=== PATIENT | male | born 2000 | race Caucasian/White ===

== ENCOUNTER 2025-02-16 22:33 | Observation (INO) | payer BC, SELFPAY ==
[2025-02-16 22:35] VITALS: BP 161/97; PULSE 127; RESP 15; TEMP 38.4; O2SAT 96; BMI 29.1
[2025-02-16 22:36] VITALS: BP 161/97; PULSE 127; RESP 15; TEMP 38.4; O2SAT 96
--- NOTE | 2025-02-16 23:04 | EKG12_ITS ---
Test Reason : PRE OP Blood Pressure : */* mmHG Vent. Rate : 93 BPM Atrial Rate : 93 BPM P-R Int : 140 ms QRS Dur : 82 ms QT Int : 338 ms P-R-T Axes : 22 38 -4 degrees QTcB Int : 420 ms Normal sinus rhythm Normal ECG Confirmed by Delta Nicole ([id number]), film editor supervisor TIA COLEMAN ([id number]) on 02/20/2025 11:54:34 AM Referred By: PENNY Confirmed By: Delta Nicole
--- NOTE | 2025-02-16 23:07 | PCA ---
NO OLD EKG
--- NOTE | 2025-02-16 23:08 | ED.VIS.GI ---
HPI HPI - GI History of Present Illness Chief Complaint: Abd Pain Informant: patient and parent Narrative Narrative: Here with mother vague generalized abdominal pain started at 1 PM today. Ate lunch at noon. 4 PM noted fever pain went to right lower quadrant. Nausea without vomiting. Has small nonbloody bowel movement 6 PM. No abdominal surgeries. No past medical history. No allergies. No urinary symptoms. No cough. Prior similar symptoms: No PFSH PFSH Medical History no medical history Home Medications ?Medication ?Instructions ?Recorded ?Last Taken ?Type NK 02/16/25 Unknown History Allergy/AdvReac Type Severity Reaction Status Date / Time No Known Allergies Allergy Verified 02/16/25 22:35 Surgical History no surgical history Social History Smoking Status: Never smoker ROS ROS ED Constitutional Constitutional ED: Reports fever(s); Denies chills or sweats ENT ENT ED: Denies sore throat Cardiovascular Cardiovascular: Denies chest pain, leg edema, palpitations or racing heartbeat Respiratory/Chest Respiratory/Chest: Denies cough, dyspnea or dyspnea on exertion Gastrointestinal Gastrointestinal: Reports abdominal pain and nausea; Denies diarrhea or vomiting Genitourinary Genitourinary ED: Denies dysuria, hematuria or urinary frequency Musculoskeletal Musculoskeletal: Denies back pain, extremity pain or neck pain Integumentary Denies rash or wounds Neurologic Neurologic: Denies headache(s), paresthesias or weakness EXAM Physical Exam Const Vital Signs: 02/16/25 22:35 02/16/25 22:36 02/16/25 23:36 Temperature 101.1 F H 101.1 F H 98 F Temperature Source Oral Oral Oral Pulse Rate 127 H 127 H 82 Respiratory Rate 15 15 16 Blood Pressure 161/97 H 161/97 H 122/74 H Blood Pressure Mean 118 118 90 Pulse Ox 96 96 97 Oxygen Delivery Method Room Air Room Air Room Air 02/17/25 00:24 Temperature 98 F Temperature Source Pulse Rate 83 Respiratory Rate 16 Blood Pressure 122/74 H Blood Pressure Mean 90 Pulse Ox 97 Oxygen Delivery Method Positive well nourished and well developed General Appearance ED: well developed and NAD HEENT Reports moist mucous membranes normocephalic and atraumatic Eyes General Eye ED: Yes normal appearance of both eyes Neck full ROM Chest Wall Chest: Negative for tenderness Resp normal respiratory effort and normal air movement Effort and Inspection: symmetric chest movement; Negative for respiratory distress Cardio regular rhythm and no murmurs Rate: tachycardic Peripheral Pulses: pulses 2+ throughout GI normal to inspection, nondistended, normoactive bowel sounds GI Narrative: Positive Nova's, positive Rovsing's Palpation: Negative for guarding or rebound tenderness present Extremity normal to inspection General Extremety ED: Negative for edema or tenderness General Extremity: Negative for edema Neuro oriented x3 and no sensory deficits noted Sensorium / Orientation: awake and alert Skin no rashes or lesions noted and no wounds MDM MDM MDM Narrative Medical decision making narrative: Interventions / MDM: Differential diagnosis: Acute appendicitis, fever, abdominal pain Diagnosis considered but do not suspect: N/A My EKG interpretation: Sinus rhythm 93, no ST changes, slight T wave version lead III nonspecific. QTc 420. Imaging independently reviewed and interpreted by myself: 1 view chest x-ray: No acute process. CT abdomen pelvis IV contrast: Dilated appendix consistent with appendicitis. External documents reviewed: N/A Test considered but not ordered:N/A ED course: Patient nontoxic and febrile tachycardic. Clinical presentation history concerns for appendicitis. Labs ordered preop EKG chest x-ray fluids Zofran. I did discuss with on-call surgeon Dr. Peguero with clinical concerns, he would like this CT abdomen pelvis IV contrast. Is okay with IV Toradol for his fever. This was ordered. He will be kept NPO. 2349: CT abdomen pelvis interpreted myself concerns for dilated appendix 11 mm. Awaiting final read. Chest x-ray negative. 0001: CT confirmed appendiceal thickening with surrounding inflammation. Clinically nausea and pain controlled at this time. 0010: We discussed with Dr. Peguero, will admit under his service will start antibiotics. Re-evaluation: stable Disposition discussed with patient/family/significant other: Patient and mother Case discussed with consulting clinician: General Surgery This note was generated with [employer] dictation software. It may contain incorrect words, spelling, and punctuation that were not noted in checking the note before signing. Lab Data Attestation: I reviewed the patient's lab results. Labs: Laboratory Results - last 24 hr 02/16/25 02/16/25 22:44 23:15 WBC 14.4 H RBC 5.50 Hgb 17.4 H Hct 47.0 MCV 85.5 MCH 31.6 MCHC 37.0 H RDW Std Deviation 36.3 RDW Coeff of Erik 11.6 Plt Count 226 MPV 10.1 Immature Gran % (Auto) 0.500 Neut % (Auto) 87.1 H Lymph % (Auto) 6.[address] [place] % (Auto) 5.3 Eos % (Auto) 0.0 Baso % (Auto) 0.2 Absolute Neuts (auto) 12.5 H Absolute Lymphs (auto) 0.99 Nucleated RBC % 0 PT 13.9 INR 1.1 APTT 23.5 L Sodium 136 Potassium 3.8 Chloride 100 Carbon Dioxide 22.8 Anion Gap 13 BUN 16 Creatinine 0.93 Estim Creat Clear Calc 143.96 Est GFR (MDRD) Non-Af 118 BUN/Creatinine Ratio 17.0 Glucose 129 H Calcium 9.7 Blood Type A POSITIVE Antibody Screen NEGATIVE Radiography Diagnostic Testing: Clinical Impression(s) from Imaging Studies Abdomen/Pelvis CT 02/16/25 23:12 IMPRESSION: Appendiceal wall thickening, hyperemia and surrounding mesenteric soft tissue stranding concerning for acute mild appendicitis. Reading Location: [facility] Chest X-Ray 02/16/25 23:27 IMPRESSION: No Acute Findings. Reading Location: [facility] Discharge Plan Dx/Rx/DC Orders Clinical Impression: Acute appendicitis, Fever, Abdominal pain, acute, right lower quadrant Disposition Disposition: [facility] Discharge Date/Time: 02/17/25 00:56
--- NOTE | 2025-02-16 23:12 | CT_ITS ---
PROCEDURE: ABDOMEN/PELVIS W IV CONT ONLY 02/16/2025 REASON FOR EXAM: RLQ PAIN TECHNIQUE: Abdomen and pelvis CT with intravenous contrast. Coronal and Sagittal reconstruction series were provided. PATIENT PREPARATION: Per protocol ORAL CONTRAST TYPE: None. AMOUNT: mL CONTRAST: Omnipaque 350 VOLUME: 100 mL Not Provided Gauge IV One or more dose reduction techniques were used (e.g., Automated exposure control, adjustment of the mA and/or kV according to patient size, use of iterative reconstruction technique. COMPARISON: None FINDINGS: Lung bases: Unremarkable. Liver: Normal size. No mass. Gallbladder: No ductal dilation. No cholelithiasis or wall thickening. Spleen: Normal size. Pancreas: Normal size without evidence of mass surrounding inflammation or ductal dilation. Adrenals: Unremarkable. Kidneys: Normal renal sizes. No hydronephrosis. Bladder: Unremarkable. Reproductive Organs: No pelvic mass. Bowel: Stomach is unremarkable. No bowel dilation or wall thickening. Moderate colonic stool. Appendix: Mild appendiceal dilation, with wall thickening and hyperemia. There is mild surrounding soft tissue stranding. Findings concerning for mild acute appendicitis. Lymph nodes: No suspicious lymph node enlargement. Vasculature: The abdominal aorta and IVC are normal. Peritoneum / Retroperitoneum: No ascites. Bones: No acute osseous abnormality. Soft tissues: Soft tissues are within normal limits. CT/Abdomen/Pelvis W IV Cont ONLY IMPRESSION: Appendiceal wall thickening, hyperemia and surrounding mesenteric soft tissue s tranding concerning for acute mild appendicitis. Reading Location: [facility]
[2025-02-16] MEDS: Ondansetron 4 MG/2 ML Vial IV (23:18)
[2025-02-16] MEDS: Ketorolac 15 MG/ML Vial IV (23:18)
[2025-02-16] MEDS: 0.9% Normal Saline (1000mL) 1,000 ML 125 ML IV (23:18)
--- NOTE | 2025-02-16 23:27 | RAD_ITS ---
PROCEDURE: CHEST 1 VIEW (PORTABLE) 02/16/2025 REASON FOR EXAM: PREOP TECHNIQUE: Frontal view of the chest. COMPARISON: None FINDINGS: Hardware: None Heart: Cardiac and mediastinal contours are stable. Lungs: No significant change in the appearance of the lungs. Bones: No focal consolidation. No pneumothorax. Other: RAD/Chest 1 View (Portable) IMPRESSION: No Acute Findings. Reading Location: [facility]
[2025-02-16 23:28] LABS: Anion Gap 13 (5-15); BUN 16 mg/dL (4-19); Calcium,Total 9.7 mg/dL (7.6-11.0); Carbon Dioxide 22.8 mmol/L (21.0-32.0); Chloride 100 mmol/L (98-108); Creatinine, Serum 0.93 mg/dL (0.70-1.20); EST Glomerular Filtration Rate 118 (>60); Estimated Creatinine Clearance 143.96 ml/min (50-250); Glucose 129 mg/dL (70-99); Potassium 3.8 mmol/L (3.3-5.1); Sodium Level 136 mmol/L (133-145)
[2025-02-16 23:36] VITALS: BP 122/74; PULSE 82; RESP 16; TEMP 36.6; O2SAT 97
[2025-02-16 23:36] LABS: International Normalized Ratio 1.1; Prothrombin Time (Protime)PT. 13.9 SECONDS (11.7-14.9)
[2025-02-16 23:37] LABS: Partial Thromboplast Time 23.5 Seconds (24.1-36.2)
[2025-02-17] VITALS (14 sets, daily range): BP systolic 116–149; BP diastolic 51–92; PULSE 68–107; RESP 16–18; TEMP 36.4–37.3; O2SAT 92–100; BMI 29.0
[2025-02-17] MEDS: Piperacil/Tazobactam 4.5 GM in 0.9% Normal Saline (100mL MB+) 100 ML IV (00:39)
[2025-02-17 00:49] LABS: Absolute Lymphocyte Count 0.99 X10^3/uL (0.83-4.51); Absolute Neutrophil Count 12.5 X10^3/uL (2.0-7.7); Basophil# 0.03 X10^3/uL; Basophil% 0.2 % (0-1); Hemoglobin 17.4 g/dL (13.0-16.5); Lymphocyte # 0.99 X10^3/ul (0.83-4.51); Lymphocyte % 6.9 % (19-41); Mean Corpuscular Hgb 31.6 pg (27.0-32.0); Mean Corpuscular Volume 85.5 fL (80-94); Mean Platelet Vol. 10.1 fl (6.2-12.0); Monocyte# 0.76 X10^3/uL; Monocyte% 5.3 % (0-10); NRBC Flagged by Analyzer 0 % (0-5); Neutrophil # 12.51 X10^3/uL (2.7-7.7); Neutrophil % 87.1 % (47-70); Platelet Count 226 K/mm3 (150-450); RBC Distribution Width CV 11.6 % (11.6-14.6); RBC Distribution Width SD 36.3 fl (35.1-43.9); White Blood Count 14.4 K/mm3 (4.4-11.0)
[2025-02-17] MEDS: Piperacil/Tazobactam 3.375 GM in 0.9% Normal Saline (50mL MB+) 50 ML IV (05:28)
[2025-02-17] MEDS: 0.9% Normal Saline (250mL Bag) 250 ML 15 ML IV (05:29)
[2025-02-17 06:19] LABS: Absolute Lymphocyte Count 1.78 X10^3/uL (0.83-4.51); Absolute Neutrophil Count 7.9 X10^3/uL (2.0-7.7); Basophil# 0.01 X10^3/uL; Basophil% 0.1 % (0-1); Eosinophil# 0.01 X10^3/uL; Eosinophils% 0.1 % (0-5); Hematocrit 41.3 % (40-54); Hemoglobin 15.3 g/dL (13.0-16.5); Lymphocyte # 1.78 X10^3/ul (0.83-4.51); Lymphocyte % 16.6 % (19-41); Mean Corpuscular Hgb 31.6 pg (27.0-32.0); Mean Corpuscular Volume 85.3 fL (80-94); Mean Platelet Vol. 9.9 fl (6.2-12.0); Monocyte# 1.04 X10^3/uL; Monocyte% 9.7 % (0-10); NRBC Flagged by Analyzer 0 % (0-5); Neutrophil # 7.86 X10^3/uL (2.7-7.7); Neutrophil % 73.1 % (47-70); Platelet Count 211 K/mm3 (150-450); RBC Distribution Width CV 11.6 % (11.6-14.6); RBC Distribution Width SD 35.1 fl (35.1-43.9); Red Blood Count 4.84 M/mm3 (4.6-6.2); White Blood Count 10.7 K/mm3 (4.4-11.0)
[2025-02-17 06:44] LABS: Anion Gap 12 (5-15); BUN 14 mg/dL (4-19); BUN/Creat Ratio 15.7 RATIO (10-20); Carbon Dioxide 25.2 mmol/L (21.0-32.0); Chloride 103 mmol/L (98-108); Creatinine, Serum 0.89 mg/dL (0.70-1.20); EST Glomerular Filtration Rate 123 (>60); Estimated Creatinine Clearance 150.27 ml/min (50-250); Glucose 105 mg/dL (70-99); Potassium 3.8 mmol/L (3.3-5.1); Sodium Level 140 mmol/L (133-145)
--- NOTE | 2025-02-17 06:59 | HP.PCM_ITS ---
HPI - General General Date of Admission: 02/17/25 Chief Complaint: Acute onset abdominal pain HPI Narrative CARA RUBIN, is a 24 M who presents to [facility] with complaints of acute onset abdominal pain beginning approximately 1300 yesterday. He shares that the pain began centrally and then migrated to become localized in his right lower quadrant. He reports some associated nausea. Bowel movements are reported as normal but there is a feeling of constipation. Mr. Rubin denies any similar symptoms prior to this event. Patient's ER workup notable for CBC that demonstrated a normal white blood cell count but slight left shift. CT imaging of the abdomen pelvis obtained with IV contrast showed evidence of mild appendicitis through dilation and wall thickening. Mr. Rubin has no history of other medical issues or prior surgery. [facility] Medical History no medical history Home Medications ?Medication ?Instructions ?Recorded ?Last Taken ?Type NK 02/16/25 Unknown History Allergy/AdvReac Type Severity Reaction Status Date / Time No Known Allergies Allergy Verified 02/16/25 22:35 Surgical History no surgical history Social History Smoking Status: Never smoker Vital Signs Vital Signs Vital Signs: 02/16/25 22:35 02/16/25 22:36 02/16/25 23:36 Temperature 101.1 F H 101.1 F H 98 F Temperature Source Oral Oral Oral Pulse Rate 127 H 127 H 82 Respiratory Rate 15 15 16 Respiratory Effort Respiratory Depth Respiratory Pattern Blood Pressure 161/97 H 161/97 H 122/74 H Blood Pressure Mean 118 118 90 Blood Pressure Source Blood Pressure Position Blood Pressure Location Pulse Ox 96 96 97 Oxygen Delivery Method Room Air Room Air Room Air 02/17/25 00:24 02/17/25 00:42 02/17/25 01:00 Temperature 98 F 98.8 F Temperature Source Oral Pulse Rate 83 85 Respiratory Rate 16 16 Respiratory Effort Normal Non-Labored Respiratory Depth Normal Respiratory Pattern Normal Blood Pressure 122/74 H 126/81 H Blood Pressure Mean 90 96 Blood Pressure Source Monitor Blood Pressure Position Semi-Fowlers Blood Pressure Location Right Arm Pulse Ox 97 97 Oxygen Delivery Method Room Air Room Air 02/17/25 06:01 Temperature 98 F Temperature Source Oral Pulse Rate 85 Respiratory Rate 16 Respiratory Effort Respiratory Depth Respiratory Pattern Blood Pressure 124/51 H Blood Pressure Mean 75 Blood Pressure Source Monitor Blood Pressure Position Semi-Fowlers Blood Pressure Location Right Arm Pulse Ox 98 Oxygen Delivery Method Room Air Weight Weight: 208 lb 8 oz Body Mass Index (BMI) 29.0 Physical Exam Const alert, oriented x3 and no apparent distress Resp normal respiratory effort GI GI Narrative: Hirsute, no scars, no visible herniation. Soft, nondistended, focally tender to palpation over McBurney's point Results Lab / Micro Data 02/17/25 05:52 02/17/25 05:52 Labs: Laboratory Results - last 24 hr 02/16/25 22:44: WBC 14.4 H, RBC 5.50, Hgb 17.4 H, Hct 47.0, MCV 85.5, MCH 31.6, MCHC 37.0 H, RDW Std Deviation 36.3, RDW Coeff of Erik 11.6, Plt Count 226, MPV 10.1, Immature Gran % (Auto) 0.500, Neut % (Auto) 87.1 H, Lymph % (Auto) 6.9 L, [place] % (Auto) 5.3, Eos % (Auto) 0.0, Baso % (Auto) 0.2, Absolute Neuts (auto) 12.5 H, Absolute Lymphs (auto) 0.99, Nucleated RBC % 0, Sodium 136, Potassium 3.8, Chloride 100, Carbon Dioxide 22.8, Anion Gap 13, BUN 16, Creatinine 0.93, Estim Creat Clear Calc 143.96, Est GFR (MDRD) Non-Af 118, BUN/Creatinine Ratio 17.0, Glucose 129 H, Calcium 9.7 02/16/25 23:15: PT 13.9, INR 1.1, APTT 23.5 L, Blood Type A POSITIVE, Antibody Screen NEGATIVE 02/17/25 05:52: WBC 10.7, RBC 4.84, Hgb 15.3, Hct 41.3, MCV 85.3, MCH 31.6, MCHC 37.0 H, RDW Std Deviation 35.1, RDW Coeff of Erik 11.6, Plt Count 211, MPV 9.9, Immature Gran % (Auto) 0.400, Neut % (Auto) 73.1 H, Lymph % (Auto) 16.6 L, Lasalle % (Auto) 9.7, Eos % (Auto) 0.1, Baso % (Auto) 0.1, Absolute Neuts (auto) 7.9 H, Absolute Lymphs (auto) 1.78, Nucleated RBC % 0, Sodium 140, Potassium 3.8, Chloride 103, Carbon Dioxide 25.2, Anion Gap 12, BUN 14, Creatinine 0.89, Estim Creat Clear Calc 150.27, Est GFR (MDRD) Non-Af 123, BUN/Creatinine Ratio 15.7, G lucose 105 H, Calcium 9.0 Imaging Radiology Impression Abdomen/Pelvis CT 02/16/25 23:12 IMPRESSION: Appendiceal wall thickening, hyperemia and surrounding mesenteric soft tissue stranding concerning for acute mild appendicitis. [facility] Chest X-Ray 02/16/25 23:27 IMPRESSION: No Acute Findings. [facility] Assessment & Plan Assessment/Plan (1) Acute appendicitis: PLAN: Patient is a 24-year-old male who is admitted for management of acute appendicitis with signs and symptoms beginning approximately 18 hours ago. Patient's history is fully consistent and CT appears confirmatory. Exam, likewise, is consistent. Patient is otherwise healthy and I have recommended surgical appendectomy via laparoscopic approach. Procedure was described in detail as well as postprocedural expectations. Patient is receptive and appropriately NPO. Will plan to proceed to the OR at first mutual availability. Consents to be obtained. Patient currently receiving Zosyn 3.375 every 8h. Delta Peguero MD General Surgery Endocrine Surgery Pager: [facility] [address] [place] [address] [address] [place] [address] Office: [phone]
[2025-02-17] MEDS: 0.9% Normal Saline (1000mL) 1,000 ML 125 ML IV ×2 (07:39→17:29)
--- NOTE | 2025-02-17 08:00 | APP_PTH ---
PATIENT: CARA RUBIN LOC: MS3 U#:[id number] AGE/SX: 24/M ROOM: [facility] RE02/17/[address]: Dr. Delta Peguero MD : [id number] BED: 1 DIS: 02/17/2025 SPEC #: [id number] RECD: 02/18/25 09:36 STATUS: MARY REAlexys #: [id number] AILYN: 02/17/25 08:[address]: Delta Peguero DEPT: SURGICAL PATHOLOGY RECD BY: Brandon Burris ENTERED: 02/18/25 10:44 SP TYPE: APPENDIX OTHR DR: Dr. Marcos Gonzalez MD Tissues: A - Appendix, NOS Procedures: Surgery Specimen Level III HEADER OPERATION: Laparoscopic appendectomy PRE-OP DIAGNOSIS: Acute appendicitis TISSUE SUBMITTED: A- Appendix MICROSCOPIC DIAGNOSIS A. Appendix, appendectomy: * Acute appendicitis with transmural inflammation and periappendicitis MICROSCOPIC DESCRIPTION Slides are reviewed. GROSS DESCRIPTION A. Received in formalin in a container labeled with the patient's name, date of , and appendix is a 6 cm in length by 0.8 cm in diameter intact appendectomy specimen with attached mesoappendix measuring up to 2.1 cm in greatest thickness. The serosa is more-chou, smooth, with adherent white-chou exudate. The stapled resection margin is inked black and serial sections reveal a lumen ranging from 0.1 to 0.5 cm filled with friable red-brown material. No perforation or fecalith is discovered. The wall thickness averages 0.3 cm. Certified Nuclear Medicine Technologist sections are submitted in A1 (including resection margin, en face with tip bisected and cross-section). [facility] 02-18-2025 CPT:[id number]
--- NOTE | 2025-02-17 12:58 | PCM.PRE.AN2 ---
ASA Classification* ASA Classification ASA Classification: 1 Assessment & Plan Anesthesia* Anesthesia Assessment Anesthesia Assessment: Discussed sedation and/or anesthesia options, risks, benefits, and alternatives with patient/parents/legal guardian/POA. Questions invited. The patient/parents/legal guardian/POA seems to understand and agrees to proceed with anesthesia plan. Reviewed the physical assessment, medical history, allergy history and patient home medications list prior to surgery/procedure/anesthetic and documented any changes. Performed airway and anesthesia risk assessments. Anesthesia Type Anesthesia Type: General History Source History Obtained from:: Patient and Chart Anesthesia Focused Assessment* Temperature: 98.6 F Pulse Rate: 79 Blood Pressure: 116/60 Respiratory Rate: 16 Pulse Ox: 97 Oxygen Delivery Method: Room Air Airway Assessment Mouth opens: >3 cm Mallampati Score: III Teeth Condition: Intact Neck Range of motion (ROM): Full ROM Focused Labs Anesthesia Preop lab: CBC WBC 10.7 K/mm3 (4.4-11.0) 02/17/25 05:52 02/17/25 RBC 4.84 M/mm3 (4.6-6.2) 02/17/25 05:52 02/17/25 Hgb 15.3 g/dL (13.0-16.5) 02/17/25 05:52 02/17/25 Hct 41.3 % (40-54) 02/17/25 05:52 02/17/25 Plt Count 211 K/mm3 (150-450) 02/17/25 05:52 02/17/25 CHEMISTRY Potassium 3.8 mmol/L (3.3-5.1) 02/17/25 05:52 02/17/25 Sodium 140 mmol/L (133-145) 02/17/25 05:52 02/17/25 BUN 14 mg/dL (4-19) 02/17/25 05:52 02/17/25 Creatinine 0.89 mg/dL (0.70-1.20) 02/17/25 05:52 02/17/25 Glucose 105 mg/dL (70-99) H 02/17/25 05:52 02/17/25 COAG PT 13.9 SECONDS (11.7-14.9) 02/16/25 23:15 02/16/25 Pre-Assessment Diagnosis/Proposed Procedure Planned Operative Procedure(s): Laparoscopic appendectomy. 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 When Was Last Pacemaker Check QUESTION #4 FULL TEXT: You/Your Family Experience fever (hyperthermia) with Anesthesia Last Oral Intake Last Oral intake: Last Oral Intake NPO since 00:00 02/17/25 10:48 Meds taken in AM with sips of No 02/17/25 10:48 water? 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 Female HX of Motion Sickness HX of N/V After Surgery Non-Smoker Duration of Surgery greater than 60 minutes Number of Risk Factors PONV Score Height & Weight Height & Weight: Anesthesia: Height & Weight Height 5 ft 11 in 02/17/25 10:48 Weight: 94.574 kg 02/17/25 10:48 Body Mass Index (BMI) 29.0 02/17/25 10:48 Respiratory Assessment Respiratory Assessment - oil refinery process technician: Respiratory Tract Infection Hx - oil refinery process technician Hx Respiratory Tract Infection No 02/17/25 01:15 STOP Sleep Apnea STOP Sleep Apnea - oil refinery process technician: STOP Sleep Apnea - oil refinery process technician Hx Hypertension No 02/17/25 00:42 Hx Sleep Apnea No 02/17/25 00:42 CPAP BIPAP Do you snore loudly (louder Yes 02/17/25 00:42 than talking or can be heard Do you often feel tired/ No 02/17/25 00:42 fatigued/ sleepy during daytime? Has anyone observed you stop No 02/17/25 00:42 breathing during sleep? STOP Results Negative 02/17/25 00:42 QUESTION #5 FULL TEXT : Do you snore loudly (louder than talking or can be heard through closed doors)? 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 Specify any problems Hx of Preganancy in last 3 N/A 02/17/25 00:42 Months Nurse Filling Out Transfusion [id number] 02/17/25 00:42 & Questions: Date: 02/17/25 02/17/25 00:42 Time: 01:10 02/17/25 00:42 Patient unable to answer at this time (ie. confused, unrespo /Reproduction History /Reproductive History - oil refinery process technician: /Reproductive Hx- oil refinery process technician Hx Now n/a 02/17/25 01:15 Gestational Age (in weeks): EDC: Hx Hx Para Hx Section SAB Active Medications Active Medications: Current Medications Generic Name Dose Route Start Last Admin Trade Name Freq PRN Reason Stop Dose Admin Acetaminophen 650 mg 02/17/25 00:33 Acetaminophen 325 Mg Tablet PO Q6H PRN PRN Pain 1-10 or Fever Hydromorphone HCl 0.5 mg 02/17/25 00:33 Hydromorphone 0.5 Mg/0.5 Ml Syringe IV Q3H PRN PRN Pain Score 6-10 Sodium Chloride 1,000 mls @ 125 mls/hr 02/17/25 00:35 02/17/25 07:39 IV 125 mls/hr .Q8H ALESSANDRA Administration Piperacillin Sod/Tazobactam 50 mls @ 12.5 mls/hr 02/17/25 06:00 02/17/25 09:28 Sod 3.375 gm/ Sodium Chloride IV Infused Q8 ALESSANDRA Infusion Sodium Chloride 250 mls @ 15 mls/hr 02/17/25 01:00 02/17/25 05:30 IV 0 mls/hr .[id number] PRN Infusion Saline Flush Sodium Chloride 250 mls @ 15 mls/hr 02/17/25 01:23 IV .[id number] PRN Saline Flush Sodium Chloride 250 mls @ 15 mls/hr 02/17/25 01:23 IV .[id number] PRN Additional IVPB Infusion Ondansetron HCl 4 mg 02/17/25 00:33 Ondansetron 4 Mg/2 Ml Vial IV Q6H PRN PRN NAUSEA Sodium Chloride 10 - 40 ml 02/17/25 01:00 0.9% Saline Lock 10 Ml Syringe IV UD PRN SALINE FLUSH Sodium Chloride 10 - 40 ml 02/17/25 01:23 0.9% Saline Lock 10 Ml Syringe IV UD PRN SALINE FLUSH PFSH Medical History no medical history Home Medications ?Medication ?Instructions ?Recorded ?Last Taken ?Type NK 02/16/25 Unknown History Allergy/AdvReac Type Severity Reaction Status Date / Time No Known Allergies Allergy Verified 02/16/25 22:35 Surgical History (Updated 02/17/25 @ 13:[address] Ronaldo Deleon MD) Whitestone teeth removed Surgical History no surgical history Social History Smoking Status: Never smoker Review of Systems (Anesthesia) ROS Narrative System reviewed and no additional complaints, except as documented.
[2025-02-17] MEDS: Bupiv/Epi 0.25% 30 ML Vial (13:01)
--- NOTE | 2025-02-17 14:34 | PCM.OPRPT ---
Procedures Digestive 40xxx-49xxx: 16770 Laparoscopy appendectomy Operative Report (Standard) Operative Information Date of Procedure: 02/17/25 Pre-Operative Diagnosis: Acute appendicitis Post-Operative Diagnosis: Acute uncomplicated appendicitis Surgery/Procedure Performed: Laparoscopic appendectomy clinical transplant coordinator: No Type of Anesthesia: General/Supplemental RN Documented Start/Stop Times: Operation Date: 02/17/25 08:00 Case Time Into Pre-Op 02/17/25 11:57 Out of Pre-Op 02/17/25 13:10 Anesthesia Start 02/17/25 13:16 Into Room 02/17/25 13:16 Procedure Start 02/17/25 13:42 Procedure End 02/17/25 14:34 Anesthesia End 02/17/25 14:44 Out of Room 02/17/25 14:44 Into Recovery 02/17/25 14:47 Out of Recovery 02/17/25 15:32 Procedure Start Time: 13:42 Procedure Stop Time: 14:34 Select all DRAINS/GRAFTS/IMPLANTS that apply: None Estimated Blood Loss: 5 Specimen collected: Yes Description of specimen(s) removed: appendix Description of surgery: After appropriate identification in the preoperative holding area, the patient was brought to the operating room and placed supine on the operating room table. Antibiotics had been preoperatively administered but were redosed at the time of incision. Patient was then induced with general endotracheal anesthetic. The abdomen was prepped and draped in usual sterile fashion. Formal timeout was conducted to confirm both the patient and the procedure. A supraumbilical incision was made and carried down to the level of the fascia which was sharply opened. After opening the peritoneum in like fashion a finger sweep was made to confirm position, and a balloon trocar was placed and pneumoperitoneum was established to 15 mmHg. Patient was positioned in Trendelenburg with the left side down. 2 additional 5 mm trocars were placed in the left lower quadrant and suprapubic positions. The peritoneum was inspected and there were no signs of inadvertent injury from this Robbins entry. The appendix was visualized with mild acute inflammation. Using blunt laparoscopic dissection and the harmonic scalpel, a window was made in the mesoappendix adjacent to the appendiceal base. Then the base of the appendix was sealed and amputated with the use of an Endo RADHA stapler. The mesoappendix was divided with application of a laparoscopic harmonic. The appendix was placed in an Endo Catch bag. The staple line was inspected for hemostasis. There was some persistent oozing from the staple line so a Ray-Maryse was introduced to the peritoneal cavity and manual pressure was applied to this area for several minutes. Still there was a slight ooze from the staple line so I elected to place a single titanium clip across the staple line. This maneuver resulted in immediate cessation of any further hemorrhage. Satisfied with this result, pneumoperitoneum was evacuated and the supraumbilical port site fascia was closed with #1 Vicryl in a [id number] fashion. The port sites were infiltrated with 30 mL local anesthetic. The skin of each port site was closed with 4-0 Monocryl in a subcuticular fashion. Steri-Strips and OpSite dressings were applied. Patient tolerated procedure well without any apparent complications. They were awoken from general anesthetic without issue and transferred to post anesthesia care unit for ongoing recovery. Surgical Findings: - Acutely inflamed appendix with some associated serositis but no evidence of perforation Complications Complications: No Admit VTE Documentation VTE Mechan Device Prophylaxis: SCD's
--- NOTE | 2025-02-17 14:42 | DCINST_ITS ---
Discharge Instructions Diet Discharge Diet: No restrictions DC O2, CPAP, BIPAP needs Home O2 Discharge instructions: No Dressing / Incision Discharge Activity: May Not Drive (No driving while using narcotic pain medication) and May Shower (Postoperative day 1) May shower in (days): 1 Ice area for (Minutes): 20 Lifting Restrictions: No lifting greater than 15 pounds for 2 weeks after surgery Dressing / Incision Call your doctor if your incision/area has: Continuous Slow Oozing, Increased Pain/ Swelling, Increased Redness, Foul Smelling Discharge and Swelling at the incision site Call your doctor if you observe: Fever of 101 or Higher Remove Dressing in: 2 days (Please leave Steri-Strips intact until they fall off spontaneously or are taken off at your follow-up visit) Cleanse incision/area with: Soap & Water Follow Up Care Please Follow Up With: Delta Peguero MD When: 7-10days postop Test Results: Test results from this visit will be discussed in further detail at your follow- up appointment, if applicable. Discharge Plan Admission Admit Date/Time: 02/17/25 00:33 Primary Reason for Your Visit: Acute appendicitis Attending Provider: Delta Peguero Primary Care Provider: Marcos Gonzalez Discharge Orders/Prescriptions Prescriptions: New oxycodone 5 mg Tablet 5 mg PO Q6H PRN PRN (Reason: Pain Score 6-10) 3 Days Qty: 14 0RF Referrals / Follow Up: Marcos Gonzalez MD [Primary Care Provider] - Disposition Disposition (needs filled in before D/C Order can be placed): Home, Self Care
--- NOTE | 2025-02-17 14:42 | PCM.DC.SUM ---
Providers Date of Admission: 02/17/25 Primary Care Physician: Dr. Marcos Gonzalez MD Reason For Visit: ACUTE APPENDICITIS Diagnosis Discharge Diagnosis (1) Acute appendicitis: Status: Acute Code(s): K35.80 - Unspecified acute appendicitis Plan: Patient is a 24-year-old male who is admitted for management of acute appendicitis with signs and symptoms beginning approximately 18 hours ago. Patient's history is fully consistent and CT appears confirmatory. Exam, likewise, is consistent. Patient is otherwise healthy and I have recommended surgical appendectomy via laparoscopic approach. Procedure was described in detail as well as postprocedural expectations. Patient is receptive and appropriately NPO. Will plan to proceed to the OR at first mutual availability. Consents to be obtained. Patient currently receiving Zosyn 3.375 every 8h. Delta Peguero MD General Surgery Endocrine Surgery Pager: [facility] [address] [place] [address], [address] [place] [id number] Office: [phone] Medications at Discharge Home Medications oxycodone 5 mg tablet 5 mg PO Q6H PRN PRN Pain Score 6-10 3 days #14 tabs 02/17/25 Hospital Course Operations appendectomy Procedures None Summary of Care Provided Hospital Course: Patient is a 24-year-old male who was admitted via the [facility] ER after presenting with signs and symptoms of acute appendicitis. After evaluation he was recommended surgical appendectomy. Patient provided his consent and ultimately underwent the procedure on 02/17/2025 in uncomplicated fashion. Return to the hospital barr where he was monitored for diet tolerance and pain control. He demonstrated appropriate tolerance of diet and appropriate control of his pain given his postoperative status and, further, requested discharge to home. This discharge request was granted after review of postoperative expectations. Physical Exam Const alert, oriented x3 and no apparent distress Resp normal respiratory effort GI GI Narrative: Patient's abdomen is nondistended, soft, operative dressings remain intact with mild strikethrough on the bandage of the suprapubic port site otherwise appropriate. Patient with expected tenderness about the port sites but otherwise benign. Weight / BMI Weight Weight: 208 lb 8 oz Body Mass Index (BMI) 29.0 ABG / Lab / Microbiology Data 02/17/25 05:52 02/17/25 05:52 Laboratory: Laboratory Results - last 24 hr 02/16/25 22:44: WBC 14.4 H, RBC 5.50, Hgb 17.4 H, Hct 47.0, MCV 85.5, MCH 31.6, MCHC 37.0 H, RDW Std Deviation 36.3, RDW Coeff of Erik 11.6, Plt Count 226, MPV 10.1, Immature Gran % (Auto) 0.500, Neut % (Auto) 87.1 H, Lymph % (Auto) 6.9 L, [place] % (Auto) 5.3, Eos % (Auto) 0.0, Baso % (Auto) 0.2, Absolute Neuts (auto) 12.5 H, Absolute Lymphs (auto) 0.99, Nucleated RBC % 0, Sodium 136, Potassium 3.8, Chloride 100, Carbon Dioxide 22.8, Anion Gap 13, BUN 16, Creatinine 0.93, Estim Creat Clear Calc 143.96, Est GFR (MDRD) Non-Af 118, BUN/Creatinine Ratio 17.0, Glucose 129 H, Calcium 9.7 02/16/25 23:15: PT 13.9, INR 1.1, APTT 23.5 L, Blood Type A POSITIVE, Antibody Screen NEGATIVE 02/17/25 05:52: WBC 10.7, RBC 4.84, Hgb 15.3, Hct 41.3, MCV 85.3, MCH 31.6, MCHC 37.0 H, RDW Std Deviation 35.1, RDW Coeff of Erik 11.6, Plt Count 211, MPV 9.9, Immature Gran % (Auto) 0.400, Neut % (Auto) 73.1 H, Lymph % (Auto) 16.6 L, [place] % (Auto) 9.7, Eos % (Auto) 0.1, Baso % (Auto) 0.1, Absolute Neuts (auto) 7.9 H, Absolute Lymphs (auto) 1.78, Nucleated RBC % 0, Sodium 140, Potassium 3.8, Chloride 103, Carbon Dioxide 25.2, Anion Gap 12, BUN 14, Creatinine 0.89, Estim Creat Clear Calc 150.27, Est GFR (MDRD) Non-Af 123, BUN/Creatinine Ratio 15.7, Glucose 105 H, Calcium 9.0 Radiography Diagnostic Testing: Radiology Impression Abdomen/Pelvis CT 02/16/25 23:12 IMPRESSION: Appendiceal wall thickening, hyperemia and surrounding mesenteric soft tissue stranding concerning for acute mild appendicitis. Reading Location: [facility] Chest X-Ray 02/16/25 23:27 IMPRESSION: No Acute Findings. [facility] Instructions DC O2, CPAP, BIPAP Needs Home O2 Discharge instructions: No Meaningful Use Info Meaningful Use Meaningful Use Diagnoses (Choose all that apply): None applicable Ischemic Stroke Statin Dosing Therapy Reference: STATIN DOSE THERAPY REFERENCE: * Patients > 75 years receive moderate or high dose statin therapy. * Patients 75 years or YOUNGER should receive HIGH intensity statin dose unless contraindicated. You will be required to document reason for non-treatment if statin daily dose does not meet guidelines. HIGH DOSE STATIN THERAPY DAILY Atorvastatin > than or = to 40 mg Rosuvastatin > than or = to 20 mg Amlodipine + Atorvastatin > than or = to 2.5/40 mg Ezetimibe + Simvastatin 10/80 mg Simvastatin 80mg Discharge Plan Admission Admit Date/Time: 02/17/25 00:33 Primary Reason for Your Visit: Acute appendicitis Attending Provider: Delta Peguero Primary Care Provider: Marcos Gonzalez Discharge Orders/Prescriptions Prescriptions: New oxycodone 5 mg Tablet 5 mg PO Q6H PRN PRN (Reason: Pain Score 6-10) 3 Days Qty: 14 0RF Referrals / Follow Up: Marcos Gonzalez MD [Primary Care Provider] - Disposition Disposition (needs filled in before D/C Order can be placed): Home, Self Care Charges/Coding Visit Charges Inpatient E&M: 68539 Disch Hosp
--- NOTE | 2025-02-17 14:54 | PCM.POST.ANE ---
Anesthesia: Postop Eval I Current Vital Signs Temperature: 97.5 F Pulse Rate: 96 Blood Pressure: 140/88 Respiratory Rate: 16 Pulse Ox: 100 Oxygen Delivery Method: Simple Mask Oxygen Flow Rate (L/min): 6 Assessment Airway patent: Yes Spontaneous unlabored respirations: Yes Mental status: Awake and Calm nausea: No Vomiting: No Anesthesia Complication: No Fluid Hydration Crystalloid volume administer (ml): 1,000 Total IV fluid infused: 1,000 Progress Note Anesthesia document: Postop Eval 1 completed: Yes
[2025-02-17] MEDS: Acetaminophen 325 MG Tablet 650 MG PO (15:51)
[2025-02-17] MEDS: oxyCODONE 5 MG Tablet PO (15:51)
--- NOTE | 2025-02-17 19:12 | POSTOPAN2_ITS ---
Anesthesia Postop Eval I Sum Postop Eval Completion status Anesthesia document: Postop Eval 1 completed: Yes Anesthesia Postop Eval I Summary Anesthesia Postop Eval I Summary: Anesthesia Postop Eval I: Assessment Summary Airway patent Yes 02/17/25 14:54 SHEET METAL [email or web address] Spontaneous unlabored Yes 02/17/25 14:54 SHEET METAL [email or web address] respirations Mental status Awake,Calm 02/17/25 14:54 SHEET METAL [email or web address] nausea No 02/17/25 14:54 SHEET METAL [email or web address].[email or web address] Vomiting No 02/17/25 14:54 SHEET METAL JOURNEYMAN.[email or web address] Anesthesia Postop Eval I: Fluid Summary Crystalloid volume administer 1,000 02/17/25 14:54 SHEET METAL [email or web address].[email or web address] (ml) Colloids volume administered ( ml) Blood Product volume administered (ml) Total IV fluid infused 1,000 02/17/25 14:54 SHEET METAL JOURNEYMAN.[email or web address] Anesthesia Postop Eval I: Summary Notes Anesthesia Complication No 02/17/25 14:54 SHEET METAL JOURNEYMAN.[email or web address] Anesthesia Complication Comment: Post-operative progress note Anesthesia: Postop Eval II Evaluation Mental status: Awake and Calm Pain Level: 2 nausea: No Vomiting: No Complications Anesthesia Complication: No
--- NOTE | 2025-02-17 19:12 | PCM.POSTANE2 ---
Anesthesia Postop Eval I Sum Postop Eval Completion status Anesthesia document: Postop Eval 1 completed: Yes Anesthesia Postop Eval I Summary Anesthesia Postop Eval I Summary: Anesthesia Postop Eval I: Assessment Summary Airway patent Yes 02/17/25 14:54 VENEER [email or web address] Spontaneous unlabored Yes 02/17/25 14:54 VENEER GRADER.[email or web address] respirations Mental status Awake,Calm 02/17/25 14:54 VENEER [email or web address].[email or web address] nausea No 02/17/25 14:54 VENEER GRADER.[email or web address] Vomiting No 02/17/25 14:54 VENEER GRADER.SKOBVenice Anesthesia Postop Eval I: Fluid Summary Crystalloid volume administer 1,000 02/17/25 14:54 VENEER GRADER.[email or web address] (ml) Colloids volume administered ( ml) Blood Product volume administered (ml) Total IV fluid infused 1,000 02/17/25 14:54 VENEER GRADER.ANCAOBVenice Anesthesia Postop Eval I: Summary Notes Anesthesia Complication No 02/17/25 14:54 VENEER GRADER.ANCAOBVenice Anesthesia Complication Comment: Post-operative progress note Anesthesia: Postop Eval II Evaluation Mental status: Awake and Calm Pain Level: 2 nausea: No Vomiting: No Complications Anesthesia Complication: No
== END 2025-02-17 18:30 | disposition home or self-care (01) ==
LOC: ED 23:12 → MS3 02-17 00:59
PROVIDERS: Anesthesiology; Admitting Provider Surgery; Emergency Provider Emergency Medicine; PCP Family Medicine; Visit Provider Surgery
PROC: 0DTJ4ZZ Resection of Appendix, Percutaneous Endoscopic Approach (ICD-10-PCS; CPT 44970; principal; 2025-02-17 07:40)
DX: K35.80 Unspecified acute appendicitis (principal)
CPT/HCPCS: 44970; 00840; 36415; 71045; 74177; 80048; 85025; 85610; 85730; 86850; 86900; 86901; 88304; 93005; 96361; 96365; 96366; 96375; 99221; 99284; Q9967; A4216; G0378; J2405